=== PATIENT | female | born 1990 | race Two or more races ===

== ENCOUNTER 2025-05-30 18:10 | Emergency (ER) | payer OTHER ==
[~2025-05-30] VITALS: Ht 160 cm; Wt 72.1 kg
[~2025-05-30 18:10] MED LIST: BACTROBAN OINT22 GM TP; DURICEF500 MG PO
[2025-05-30] MEDS ORDERED: RIVAROXABAN 15 MG TABLET PO STA (19:22)
[2025-05-30 19:24] LABS: BASO % 0.2 % (0.1-1.2); EOS # 0.01 (0.04-0.54); EOS % 0.1 % (0.7-7.0); LYMPH # 1.81 (1.18-3.74); LYMPH % 15.5 % (19.3-53.1); MEAN PLATELET VOLUME 9.40 fl (9.4-12.4); MONO # 1.21 (0.24-0.82); MONO % 10.4 % (4.7-12.5); NEUT # 8.59 (1.56-6.13); NEUT % 73.5 % (34.0-71.1); RED CELL DISTRIBUTION WIDTH 12.5 % (11.6-14.4)
[2025-05-30 19:45] LABS: INR 0.99
[2025-05-30 19:49] LABS: D DIMER 0.41 MG/L
[2025-05-30 20:15] LABS: URINE APPEARANCE Clear; URINE BILIRRUBIN Negative (NEGATIVE); URINE BLOOD Negative; URINE COLOR Yellow; URINE GLUCOSE Negative (NEGATIVE); URINE KETONE Trace (NEGATIVE); URINE LEUKOCYTE Negative; URINE NITRATE Negative; URINE PROTEIN Negative (NEGATIVE); URINE UROBILINOGEN 1.0 E.U./dl
[2025-05-30 20:18] LABS: URINE BACTERIA 94.7 uL (0.0-1933); URINE EPITHELIAL CELLS 3.0 uL (0.0-38.8); URINE RBC 2.9 uL (0.0-20.8); URINE WBC 2.4 uL (0.0-23.2)
[2025-05-30 20:21] LABS: URINE CAST 0.29 uL (0.0-1.40)
[2025-05-30 21:14] VITALS: BP 100/60; O2SAT 100
[2025-05-31] MEDS ORDERED: ECOTRIN81 MG PO (14:42)
== END 2025-05-30 21:15 | disposition home or self-care (01) ==
LOC: ER 18:10
PROVIDERS: Emergency Medicine
DX: M79.604 Pain in right leg (principal); M79.89 Other specified soft tissue disorders

== ENCOUNTER 2025-05-31 09:14 | Emergency (ER) | payer OTHER ==
[~2025-05-31] VITALS: Ht 162.6 cm; Wt 77.1 kg
[2025-05-31] MEDS ORDERED: ECOTRIN81 MG PO (14:42)
== END 2025-05-31 15:28 | disposition home or self-care (01) ==
LOC: ER 09:14
DX: M79.661 Pain in right lower leg (principal); J45.909 Unspecified asthma, uncomplicated